=== PATIENT | female | born 1935 | race Caucasian/White ===

== ENCOUNTER → 2022-09-09 13:24 | Outpatient (BNVA) | payer MEDICARE, OTHER, SELFPAY | PROVIDERS: PCP Pediatrics; Visit Provider Internal Medicine Cardiovascular Disease | DX: R06.09 Other forms of dyspnea (principal); R07.9 Chest pain, unspecified; R01.1 Cardiac murmur, unspecified; I11.0 Hypertensive heart disease with heart failure; I50.9 Heart failure, unspecified; R94.39 Abnormal result of other cardiovascular function study; M54.2 Cervicalgia; E78.5 Hyperlipidemia, unspecified | CPT/HCPCS: 93005; 99204 ==

== ENCOUNTER 2022-09-21 12:45 | Outpatient (CLI) | payer MEDICARE, OTHER, SELFPAY ==
--- NOTE | 2022-09-21 13:30 | USCV_ITS ---
Grazyna Ruiz Age: 86 Gender: F : 1935 Exam Date: 09/21/2022 13:00 Ordering Phys: Jacqueline Engel MD ([email or web address]) Technologist: CT Exam Location: [facility] [place] Indication: sob BP: 158 / 85 HR: 63 Rhythm: Sinus Technical Quality: Adequate MEASUREMENTS (Male / Female) Normal Values 2D ECHO LV Chamber Size 4.3 cm RV Chamber Size 3.3 cm LVOT Diameter 2.0 cm LV Ejection Fraction MOD 2C 52.6 % LV Ejection Fraction 2C AL 51.6 % LA Diameter 4.0 cm LA Width 3.8 cm LA Height 4.5 cm RA Width 3.0 cm RA Height 3.9 cm Aorta at Sinotubular Diameter 2.2 cm IVC Diameter 1.0 cm M-MODE Aortic Annulus Diameter 3.0 cm LA Ao Ratio MM 1.4 MV E Point Septal Separation 0.6 cm DOPPLER AV Peak Velocity 201.0 cm/s LVOT Peak Velocity 110.0 cm/s AV Area Cont Eq vti 2.7 cm squared AV Area Cont Eq pk 1.8 cm squared MV Peak Velocity 143.0 cm/s MV Area PHT 2.9 cm squared Mitral E to A Ratio 0.8 MV E' Velocity 60.5 cm/s Mitral E to MV E' Ratio 15.2 Mitral E to LV E' Lateral Ratio 18.9 Mitral E to LV E' Septal Ratio 12.7 TR Peak Velocity 259.0 cm/s TR Peak Gradient 26.8 mmHg TV Peak E Velocity 84.0 cm/s Right Atrial Pressure 3.0 mmHg Pulmonary Artery Systolic Pressu 29.8 mmHg PV Peak Velocity 121.0 cm/s FINDINGS Left Ventricle Normal left ventricular size and systolic function, EF 55 %. Moderate left ventricular hypertrophy. No regional wall motion abnormalities. Grade I/IV diastolic dysfunction (abnormal relaxation filling pattern), normal to mildly elevated filling pressures. Right Ventricle The right ventricle is normal in size and function. Right Atrium The right atrium is normal in size. Left Atrium Mildly increased left atrial size. Mitral Valve Thickened mitral valve. Mild mitral annular calcification. Mild mitral valve regurgitation. Aortic Valve Thickened aortic valve. Aortic valve sclerosis. Tricuspid Valve Trace to mild tricuspid valve regurgitation. Pulmonic Valve Mild pulmonary valve regurgitation. Pericardium Normal pericardium without effusion. Aorta Normal ascending aorta dimension. IVC The inferior vena cava appears normal. CONCLUSIONS Normal left ventricular size and systolic function, EF 55 %. Moderate left ventricular hypertrophy. No regional wall motion abnormalities. Grade I/IV diastolic dysfunction (abnormal relaxation filling pattern), normal to mildly elevated filling pressures. Mildly increased left atrial size. Thickened mitral valve. Mild mitral annular calcification. Mild mitral valve regurgitation. Features of aortic valve sclerosis Trace to mild tricuspid valve regurgitation. Mild pulmonary valve regurgitation. Estimated pulmonary artery peak systolic pressure of 30 mm of Hg. There is no pericardial effusion. There are no intracardiac masses. No previous study is available for comparison. Dr Jacqueline Engel MD [facility] (Electronically Signed) Final Date: 22 September 2022 10:02 S
== END 2022-09-21 12:46 | disposition home or self-care (01) ==
PROVIDERS: PCP Pediatrics; Visit Provider Internal Medicine Cardiovascular Disease
DX: R01.1 Cardiac murmur, unspecified (principal); R06.09 Other forms of dyspnea; I08.1 Rheumatic disorders of both mitral and tricuspid valves
CPT/HCPCS: 93005; 93306; 99204

== ENCOUNTER 2022-09-28 08:56 | Outpatient (CLI) | payer MEDICARE, OTHER, SELFPAY ==
[2022-09-28 09:48] VITALS: BMI 25.8
--- NOTE | 2022-09-28 09:50 | NMCV_ITS ---
NM jo-ann perf SPECT r/s* [id number] Grazyna uRiz Age: 86 Gender: F : 1935 Exam Date: 09/28/2022 09:50 Ordering Phys: Jacqueline Engel MD ([email or web address]) Technologist: CARON Leblanc Exam Location: [facility] Indications: CORONARY ANGIOPLASTY STATUS STRESS TEST Please see separate stress test report [facility] for full findings IMAGE PROTOCOL Rest/Stress 1 Lexiscan Day Radiopharmaceutical Dose (mCi) Administration Site Administered by Rest: Tc-99m 10.9 IV CARON Leblanc Sestamibi Stress:Tc-99m 32.4 IV CARON Hines Sestamibi Rest: 28-Sep-2022 60 Discovery 630 Stress: 28-Sep-2022 30 Discovery 630 0.4mg Lexiscan. Supine position only as patient was unable to lay prone. SPECT RESULTS Technical Quality: Excellent Raw Data Analysis: Normal Image Corrections: No attenuation or motion correction applied Summed Stress Score: 0 Summed Rest Score: 0 Summed Difference Score: 0 PERFUSION FINDINGS Fairly uniform myocardial tracer uptake with no significant perfusion abnormalities FUNCTIONAL RESULTS (calculated via Gated SPECT) Stress Image LV EF (%): 89 Stress EDV (mL):46 TID: 0.88 Stress ESV (mL):5 FUNCTIONAL FINDINGS: Segmental wall motion analysis revealing no gross wall motion abnormalities IMPRESSIONS 1. Unremarkable Myocardial perfusion imaging 2. Normal LV ejection fraction of 89 point 3. LV wall motion analysis revealing no gross wall motion abnormalities. 4. Normal LV volume 5. Low probability for coronary ischemia, based on the above findings No similar previous studies are available for comparison Dr Jacqueline Engel MD [facility] (Electronically Signed) Final Date: 28 September 2022 16:42 S
--- NOTE | 2022-09-28 09:50 | ECG_ITS ---
[facility] Test Date: 2022-09-28 Pat Name: Grazyna Ruiz Department: Room: Gender: Female Yacht Hand: : 1935 Requested By: Jacqueline Engel Order Number: [id number] Laury MD: Jacqueline Engel M.D. Interpretive Statements NAME OF STUDY: LEXISCAN SESTAMIBI STRESS TEST INDICATION: Shortness of Breath; Neck Pain PROCEDURE: At the baseline, the EKG revealed sinus bradycardia with a rate of 57 bpm. Normal WI and QRS duration. Poor R wave progression. The baseline heart was 55 bpm with a blood pressue of 175/77 mm of Hg Lexiscan was infused over a period of 20 seconds. A total of 0.4 milligrams of Lexiscan was infused. The stress phase was continued for a total of 5 minutes. Heart rate at the end of the stress phase was 73 bpm with a blood pressure 139/65 mm of Hg. The EKG at the peak infusion revealed no significant changes. Sestamibi was injected 20 seconds after the Lexiscan infusion. Heart rate at the end of the recovery phase was 66 bpm with a blood pressure of 143/67 mm of Hg. CONCLUSION: 1. No significant EKG changes with the LexiScan infusion 2. No LexiScan induced chest pain or cardiac arrhythmia 3. Normal blood pressure and heart rate response 4. Sestamibi/sestamibi perfusion scan pending; see separate report. Electronically Signed On 09-29-2022 23:45:09 CDT by Jacqueline Engel M.D. [id number]
[2022-09-28] MEDS: regadenoson 0.4 Mg/5 ml Syringe IVP (11:41)
[2022-09-28 11:57] VITALS: BP 139/65; PULSE 65
== END 2022-09-28 08:57 | disposition home or self-care (01) ==
PROVIDERS: PCP Pediatrics; Visit Provider Internal Medicine Cardiovascular Disease
DX: R06.02 Shortness of breath (principal); M54.2 Cervicalgia; Z98.61 Coronary angioplasty status
CPT/HCPCS: 36415; 78452; 93017; 96374; A9500; J2785